=== PATIENT | male | born 1985 | race Caucasian/White ===

== ENCOUNTER 2018-04-07 15:16 | Emergency (ER) | payer SELFPAY, OTHER ==
[2018-04-07] MEDS ORDERED: ETOMIDATE 40 MG/20 ML VIAL (16:03)
== END 2018-04-07 18:11 | disposition home or self-care (01) ==
LOC: NEPK 15:16
DX: S60.221A Contusion of right hand, initial encounter (principal); S46.912A Strain of unspecified muscle, fascia and tendon at shoulder and upper arm level, left arm, initial encounter; W20.8XXA Other cause of strike by thrown, projected or falling object, initial encounter; Y93.89 Activity, other specified
CPT/HCPCS: 73030; 73130; 99283